=== PATIENT | female | born 1960 | race African-American/Black ===

== ENCOUNTER 2017-11-21 07:55 | Emergency (ER) | payer MEDICAID ==
[~2017-11-21] VITALS: Ht 154.9 cm; Wt 54.0 kg
[2017-11-21 08:22] VITALS: BP 173/110
[2017-11-21 08:55] LABS: CHLORIDE 114 mEq/L (98-107)
[2017-11-21 08:58] LABS: BASOPHILS % 0.7 % (0.0-2.0); EOSINOPHILS % 1.1 % (0.0-5.0); HEMATOCRIT. 45.4 % (36.0-48.0); HEMOGLOBIN. 14.3 g/dL (12.0-16.0); LYMPHOCYTES % 37.1 % (20.0-50.0); MEAN CORPUSCULAR HEMOGLOBIN 21.8 pg (28.0-32.0); MEAN CORPUSCULAR VOLUME 69.2 fL (81.0-99.0); MONOCYTES % 10.7 % (2.0-8.0); NEUTROPHILS % 50.4 % (40.0-76.0); RED BLOOD CELL COUNT 6.56 mill/uL (4.2-5.4); RED CELL DISTRIBUTION WIDTH 16.4 % (11.6-14.6)
[2017-11-21 09:00] LABS: ETHANOL BLOOD 37 mg/dL
[2017-11-21 09:03] LABS: CREATINE KINASE 116 IU/L (26-192)
[2017-11-21 09:05] LABS: VALPROIC ACID < 3.0 ug/mL (50-100)
[2017-11-21 09:29] LABS: MEAN PLATELET VOLUME 9.1 fl (7.4-10.4); PLATELET 229 x1000/uL (130-400); PLATELET ESTIMATE NORMAL
[2017-11-21 10:32] LABS: *AMPHETAMINES SCREEN URINE NEGATIVE (NEGATIVE); *BARBITURATES SCREEN URINE NEGATIVE (NEGATIVE); *BENZODIAZEPINES SCREEN URINE NEGATIVE (NEGATIVE); *COCAINE SCREEN URINE PRESUMTIVE POSITIVE (NEGATIVE)
[2017-11-21 10:33] LABS: CANNABINOID URINE SCREEN PRESUMTIVE POSITIVE (NEGATIVE); METHADONE URINE SCREEN NEGATIVE (NEGATIVE); OPIATES URINE SCREEN NEGATIVE (NEGATIVE)
[2017-11-21 10:45] LABS: PHENCYCLIDINE URINE SCREEN NEGATIVE (NEGATIVE)
== END 2017-11-21 10:19 | disposition left against medical advice (07) ==
LOC: ER 07:55 → EDSEX 07:55 → CANRESERV 09:07 → ENRESERV 09:07 → ER 10:19 → CANBEDREQ 10:29
DX: G40.909 Epilepsy, unspecified, not intractable, without status epilepticus (principal); E87.5 Hyperkalemia; I69.351 Hemiplegia and hemiparesis following cerebral infarction affecting right dominant side; F17.200 Nicotine dependence, unspecified, uncomplicated; Z88.0 Allergy status to penicillin; Z88.6 Allergy status to analgesic agent
CPT/HCPCS: 36415; 70450; 71045; 80053; 80165; 80185; 80305; 82550; 82962; 85025; 85610; 93005; 99285; G0482